=== PATIENT | male | born 1960 | race African-American/Black ===

== ENCOUNTER 2020-05-14 02:05 | Emergency (ER) | payer BC, SELFPAY ==
[2020-05-14 02:42] VITALS: BP 138/87; PULSE 78; RESP 16; TEMP 36.7; O2SAT 98
[2020-05-14 02:56] LABS: Add Urine Microscopic? NO; Appearance Urine Clear (Clear); Bilirubin Urine Negative (Negative); Blood Urine Negative (Negative); Color Urine Yellow (Yellow); Glucose Urine UA Negative (Negative); Ketones Urine Negative (Negative); Leukocyte Esterase Ur Negative LEU/UL (Negative); Nitrate Urine Negative (Negative); Protein Urine Negative (Negative); Specific Grav Ur 1.012 (1.001-1.035); Urobilinogen Urine Negative mg/dL (<2.0)
--- NOTE | 2020-05-14 02:56 | ED.MALEGU ---
HPI - Male Genitourinary General Chief complaint: Urogenital-Male Stated complaint: std exposure Time Seen by Provider: 05/14/20 02:10 History of Present Illness HPI Narrative: Patient is a 59-year-old male who presents ER with concerns for STD exposure. Reports several weeks ago he was with a woman. He was wearing a condom however she for formed oral sex and since then he has been having discomfort in his urethra. He feels like it is an itching sensation. He been on a 1 week course of doxycycline by his primary care physician but symptoms remain. Occasionally feels like there might be a remnant of discharge in his underwear but has not seen a thick discharge. He has no pain or swelling in his testicles. No penile lesions. Related Data Allergies Allergy/AdvReac Type Severity Reaction Status Date / Time No Known Allergies Allergy Verified 05/14/20 02:11 Review of Systems Constitutional: Constitutional: Denies chills, Denies fever(s) and Denies weakness Gastrointestinal: Gastrointestinal: Denies abdominal pain, Denies nausea and Denies vomiting Genitourinary: Genitourinary: Denies genital lesions, Reports dysuria, Reports penile discharge and Denies testicular pain PMFSH Past Medical History Medical History (Updated 05/14/20 @ 03:08 by Itz Honeycutt MD) Healthy adult male Surgical History Surgical History (Updated 05/14/20 @ 03:02 by Itz Honeycutt MD) No history of previous surgery Exam Narrative: Exam Narrative: GENERAL: Well-appearing, well-nourished, and in no acute distress. HEAD: Normocephalic, atraumatic. : Normal-appearing external genitalia without lesions to penile shaft and glans. No urethral discharge. No tenderness to the testicles bilaterally. EXTREMITIES: Normal range of motion. No edema. NEURO: Alert and oriented x3. PSYCH: Normal mood and affect. Course Course Emergency Course: Normal UA without evidence of urethritis. Will send for GC/chlamydia. Will give patient ceftriaxone injection since he has been adequately treated with doxycycline. Vital Signs Vital signs: Vital Signs Temperature 98.1 F 05/14/20 02:42 Pulse Rate 78 05/14/20 02:42 Respiratory Rate 16 05/14/20 02:42 Blood Pressure 138/87 05/14/20 02:42 Pulse Oximetry 98 05/14/20 02:42 Temperature 98.1 F 05/14/20 02:42 Pulse Rate 78 05/14/20 02:42 Respiratory Rate 16 05/14/20 02:42 Blood Pressure 138/87 05/14/20 02:42 Pulse Oximetry 98 05/14/20 02:42 MDM - Male Genitourinary Lab Data Labs: Lab Results 05/14/20 05/14/20 Range/Units 02:44 02:44 Urine Color Pending Urine Appearance Pending Urine pH Pending Ur Specific Dietrich Pending Urine Protein Pending Urine Glucose (UA) Pending Urine Ketones Pending Ur Blood (Man) Pending Urine Nitrate Pending Urine Bilirubin Pending Urine Urobilinogen Pending Leukocyte Esterase Rfl Pending C.trachomatis RNA (TMA) Pending N.gonorrhoeae RNA (TMA) Pending Urine Characteristics Clear Discharge Plan Discharge Clinical Impression: Possible exposure to STD Patient Disposition: Home, Self-Care Condition: Stable Instructions: Sexually Transmitted Diseases (ED) Additional Instructions: Your evaluated for possible sexually transmitted infection exposure. A test has been sent to the lab. You are treated with doxycycline previously which is a good treatment for chlamydia. Gonorrhea requires treatment with ceftriaxone so you received a intramuscular shot to help treat this infection should it be the cause of your symptoms. Return the ER if you have increased discomfort in the genital region, you have fever over 100.4 ?F, or you have additional concerns. Follow-up/Referrals: Nehemiah,Sotero Sepulveda MD [Primary Care Provider] - 1 Week
[2020-05-14] MEDS: cefTRIAXone 250 MG VIAL 500 MG IM (03:14)
[2020-05-14 03:39] VITALS: BP 134/78; PULSE 78; RESP 16; TEMP 36.7; O2SAT 98
== END 2020-05-14 03:40 | disposition home or self-care (01) ==
PROVIDERS: Emergency Provider Emergency Medicine; PCP Family Medicine
DX: R36.9 Urethral discharge, unspecified (principal)
CPT/HCPCS: 81003; 87491; 87591; 96372; 99283; J0696